=== PATIENT | male | born 2000 | race African-American/Black ===

== ENCOUNTER 2023-11-07 18:11 | Emergency (ER) | payer OTHER, SELFPAY ==
[2023-11-07] MEDS ORDERED: Acetaminophen 500 MG TAB ONE (19:15)
== END 2023-11-07 19:45 | disposition home or self-care (01) ==
LOC: CSHERS 18:11
DX: S80.212A Abrasion, left knee, initial encounter (principal); S80.211A Abrasion, right knee, initial encounter; S80.812A Abrasion, left lower leg, initial encounter; S80.811A Abrasion, right lower leg, initial encounter; M25.561 Pain in right knee; V23.09XA Other motorcycle driver injured in collision with car, pick-up truck or van in nontraffic accident, initial encounter; Y93.55 Activity, bike riding
CPT/HCPCS: 71045; G0390

== ENCOUNTER 2024-09-16 09:06 | Emergency (ER) | payer SELFPAY, OTHER ==
[2024-09-16] MEDS ORDERED: Ibuprofen 200 MG TAB ONE (09:52)
[2024-09-16] MEDS ORDERED: Acetaminophen 500 MG TAB ONE (09:52)
== END 2024-09-16 09:08 | disposition home or self-care (01) ==
LOC: CSHERS 09:06
DX: S06.0X0A Concussion without loss of consciousness, initial encounter (principal); S13.4XXA Sprain of ligaments of cervical spine, initial encounter; M54.6 Pain in thoracic spine; J45.909 Unspecified asthma, uncomplicated; Z55.6 Problems related to health literacy; V49.9XXA Car occupant (driver) (passenger) injured in unspecified traffic accident, initial encounter
CPT/HCPCS: 99283

== ENCOUNTER 2024-09-26 08:49 | Emergency (ER) | payer OTHER, SELFPAY ==
[2024-09-26] MEDS ORDERED: Ketorolac Tromethamine 30 MG (1 mL) VIAL ONE (09:47)
[2024-09-26] MEDS ORDERED: Ibuprofen 200 MG TAB ONE (10:10)
== END 2024-09-26 11:17 | disposition home or self-care (01) ==
LOC: CSHERS 08:49
DX: M54.2 Cervicalgia (principal); M25.519 Pain in unspecified shoulder
CPT/HCPCS: 70450; 72125; 72128; 72131; J1885